=== PATIENT | female | born 1995 | race Caucasian/White ===

== ENCOUNTER 2020-07-04 07:14 | Inpatient (IN) | payer OTHER, SELFPAY ==
[2020-07-04] MEDS ORDERED: Fentanyl 100 MCG/2 ML VIAL ONE ×5 (07:20→17:02)
[2020-07-04 07:33] LABS: Hemoglobin 14.2 g/dL (12.0-16.0); Mean Corpuscular HGB CONC 33.7 g/dL (32.0-36.0); Mean Corpuscular Hemoglobin 30.7 pg (27.0-31.0); Mean Corpuscular Volume 91.2 fL (78.0-98.0); Mean Platelet Volume 6.6 fL (7.4-10.4); Platelet Count 399 thou/uL (130-400); RBC Distribution Width 11.3 % (11.5-14.5); Red Blood Cell (RBC) Count 4.62 mill/uL (4.20-5.40); White Blood Cell (WBC) Count 24.5 thou/uL (4.8-10.8)
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
[2020-07-04 07:36] LABS: BHCG - Serum Negative (NEGATIVE); Pregs Control Background? CLEAR/WHITE (CLR/WHITE); Pregs Control Bar Appear? YES (CONTROL BAR)
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
[2020-07-04 07:49] LABS: Band 5 % (5-11); Lymphocytes 11 % (21-51); MDiff Complete? YES; Monocytes 7 % (0-10); Neutrophil 75 % (42-75); Platelet Morphology Comment Appears Adequate; Polychromasia SLIGHT = 2-3 cells (100X) (0-2/hpf); Reactive Lymphocytes 2 % (0-10)
[2020-07-04] MEDS ORDERED: Boostrix 0.5 ML (Tdap) VIAL ONE (07:50)
[2020-07-04 07:54] LABS: ALT (SGPT) 34 U/L (8-55); AST (SGOT) 57 U/L (5-34); Albumin 4.4 g/dL (3.5-5.0); Alcohol 127 mg/dL (Less than 10); Alkaline Phosphatase 58 U/L (40-110); Anion Gap 17 mmol/L (10-20); BUN (Urea Nitrogen) 10 mg/dL (7.0-18.7); Bilirubin, Total 0.3 mg/dL (0.2-1.2); Calc. Creatinine Clearance 0 mL/min (70-130); Calcium 9.4 mg/dL (7.8-10.44); Carbon Dioxide 21 mmol/L (22-29); Chloride 107 mmol/L (98-107); Estimated GFR-MDRD 76; Glucose 117 mg/dL (70-105); Protein, Total 7.4 g/dL (6.0-8.3); Sodium 141 mmol/L (136-145)
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
[2020-07-04 08:24] LABS: Bacteria/HPF None Seen HPF (None Seen); Bilirubin Negative (Negative); Blood, Urine 1+ (Negative); Clarity Clear (Clear); Glucose, Urine (Dipstick) Normal (Negative); Ketone, Urine Negative (Negative); Leukocyte Negative Leu/uL (Negative); Nitrite Negative (Negative); Protein, Urine (Dipstick) Negative (Neg-Trace); Specific Gravity, Urine 1.006 (1.002-1.036); Squamous Epithelial None Seen HPF (0-3); Urobilinogen Normal mg/dL (Less than 2); WBC/HPF 0-3 HPF (0-3)
[2020-07-04] MEDS ORDERED: Ondansetron PF 4 MG/2 ML Vial ONE ×2 (08:27→08:57)
[2020-07-04] MEDS ORDERED: Dexamethasone 10 MG/ML VIAL ONE (08:27)
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
[2020-07-04 08:49] LABS: Amphetamine Detected (NotDetected); Barbiturates Screen Not Detected (NotDetected); Benzodiazepine Screen Detected (NotDetected); Cocaine Metabolite Screen Not Detected (NotDetected); Medtox Control Line Valid? VALID (VALID); Medtox Reader # READER 4; Methadone Not Detected (NotDetected); Methamphetamine Not Detected (NotDetected); Opiate Screen Not Detected (NotDetected); Oxycodone Screen Not Detected (NotDetected); Phencyclidine (PCP) Not Detected (NotDetected); THC/Cannabinoid Screen Not Detected (NotDetected); Tricyclic Screen Not Detected (NotDetected)
[2020-07-04] MEDS ORDERED: PHENYLEPHRINE-NS 100 MCG/ML 10 ML SYRINGE ONE (08:57)
[2020-07-04] MEDS ORDERED: ePHEDrine 50 MG/ML VIAL ONE (08:57)
[2020-07-04] MEDS ORDERED: Lidocaine 1% PF 5 ML VIAL ONE (08:57)
[2020-07-04] MEDS ORDERED: Glycopyrrolate 0.2 MG/ML 5 ML SYRINGE ONE (08:57)
[2020-07-04] MEDS ORDERED: Rocuronium Bromide 10 MG/ML (10ML VIAL) ONE (08:57)
[2020-07-04] MEDS ORDERED: Succinylcholine 200 MG/10 ml SYRINGE FS ONE (08:57)
[2020-07-04] MEDS ORDERED: PROPOFOL 200 MG/20 ML VIAL ONE (08:57)
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
[2020-07-04] MEDS ORDERED: Thrombin 5000 UNITS/5 ML VIAL ONE (10:51)
[2020-07-04 11:01] LABS: SARS-CoV-2 NAA Rapid Test Not Detected (NotDetected)
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
[2020-07-04] MEDS ORDERED: methylPREDNISolone Sod Succ 40 MG VIAL IVP SCH ×3 (11:45→12:45)
[2020-07-04] MEDS ORDERED: Pantoprazole 40 MG VIAL ONE (11:48)
[2020-07-04] MEDS ORDERED: Dextrose 50% Abboject 50 ML SYRINGE SLOW IVP PRN (12:04)
[2020-07-04] MEDS ORDERED: Morphine 4 MG/ML VIAL SLOW IVP PRN (12:04)
[2020-07-04] MEDS ORDERED: Dextrose 5% in Water 1,000 ML IV PRN (12:04)
[2020-07-04] MEDS ORDERED: traMADol HCl 50 MG TAB PO PRN (12:06)
[2020-07-04] MEDS ORDERED: Ondansetron PF 4 MG/2 ML Vial IVP PRN (12:06)
[2020-07-04] MEDS ORDERED: Sodium Chloride 0.9% 1,000 ML IV SCH (12:15)
[2020-07-04] MEDS ORDERED: Phenylephrine 10 MG/ML VIAL ONE ×2 (12:26→14:37)
[2020-07-04] MEDS ORDERED: SODIUM CHLORIDE 0.9% IVP SCH (12:30)
[2020-07-04] MEDS ORDERED: METHYLPREDNISOLONE SODIUM SUCC IVP SCH (12:30)
[2020-07-04] MEDS ORDERED: SODIUM CHLORIDE 0.9% IVPB SCH ×2 (12:45→13:00)
[2020-07-04] MEDS ORDERED: METHYLPREDNISOLONE SOD SUCC IVPB SCH ×2 (12:45→13:00)
[2020-07-04 12:55] LABS: Phosphorus 4.1 mg/dL (2.3-4.7)
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
[2020-07-04] MEDS ORDERED: Iopamidol-370 76% 500 ML 1 ML ONE (14:24)
[2020-07-04] MEDS ORDERED: HYDROmorphone 2 MG/ML VIAL ONE (15:44)
[2020-07-04] MEDS: CEFAZOLIN 2 GM in Premix Bag 1 BAG IVPB SCH ×2 (16:02→21:33)
[2020-07-04] MEDS: Acetaminophen 500 MG TAB PO SCH ×3 (16:28→23:58)
[2020-07-04] MEDS: traMADol HCl 50 MG TAB PO SCH ×3 (16:29→23:59)
[2020-07-04] MEDS: Gabapentin 300 MG CAP PO SCH ×2 (16:29→19:39)
[2020-07-04] MEDS ORDERED: Morphine Sulfate 2 MG/ML SYRINGE SLOW IVP PRN (16:31)
[2020-07-04] MEDS ORDERED: Promethazine HCl 25 MG/ML VIAL SLOW IVP PRN (16:31)
[2020-07-04] MEDS ORDERED: Meperidine HCl/PF 25 MG/ML VIAL SLOW IVP PRN (16:31)
[2020-07-04] MEDS ORDERED: HYDROmorphone 2 MG/ML VIAL SLOW IVP PRN (16:31)
[2020-07-04] MEDS ORDERED: Promethazine HCl 25 MG/ML VIAL IM PRN (16:31)
[2020-07-04] MEDS ORDERED: PACU-Morphine 4MG/ML VIAL SLOW IVP PRN (16:31)
[2020-07-04] MEDS ORDERED: Ketorolac Tromethamine 30 MG/ML VIAL IVP PRN (16:31)
[2020-07-04] MEDS ORDERED: Ondansetron HCl/PF 4 MG/2 ML Vial IVP PRN (16:31)
[2020-07-04] MEDS: SODIUM CHLORIDE 0.9% IVPB SCH (17:58)
[2020-07-04] MEDS: METHYLPREDNISOLONE SOD SUCC IVPB SCH (17:58)
[2020-07-04 18:14] VITALS: BMI 23.1
[2020-07-04] MEDS: Ondansetron PF 4 MG/2 ML Vial IVP PRN ×2 (18:47→21:36)
[2020-07-04 18:52] LABS: Hemoglobin 10.3 g/dL (12.0-16.0); Mean Corpuscular HGB CONC 32.9 g/dL (32.0-36.0); Mean Corpuscular Hemoglobin 30.6 pg (27.0-31.0); Mean Corpuscular Volume 92.9 fL (78.0-98.0); Mean Platelet Volume 6.8 fL (7.4-10.4); Platelet Count 276 thou/uL (130-400); RBC Distribution Width 12.6 % (11.5-14.5); Red Blood Cell (RBC) Count 3.38 mill/uL (4.20-5.40); White Blood Cell (WBC) Count 12.1 thou/uL (4.8-10.8)
[2020-07-04 18:54] LABS: Anion Gap 18 mmol/L (10-20); BUN (Urea Nitrogen) 11 mg/dL (7.0-18.7); CK (CPK) 2343 U/L (29-168); Calc. Creatinine Clearance 101 mL/min (70-130); Calcium 7.7 mg/dL (7.8-10.44); Carbon Dioxide 15 mmol/L (22-29); Chloride 110 mmol/L (98-107); Estimated GFR-MDRD 85; Glucose 189 mg/dL (70-105); Lactic Acid 7.1 mmol/L (0.5-2.2); Potassium 4.4 mmol/L (3.5-5.1); Sodium 139 mmol/L (136-145)
[2020-07-04] MEDS: Lactated Ringer's 1,000 ML IV SCH (19:35)
[2020-07-04] MEDS: Morphine 2 MG/ML VIAL SLOW IVP PRN ×3 (19:38→23:58)
[2020-07-04] MEDS ORDERED: Lactated Ringer's 500 ML IV SCH (20:15)
[2020-07-04] MEDS ORDERED: Famotidine 20 MG TAB PO SCH (21:00)
[2020-07-04] MEDS ORDERED: Pantoprazole 40 MG VIAL IVP SCH (21:00)
[2020-07-04] MEDS: Senokot S 8.6-50 MG TAB PO SCH (22:12)
[2020-07-05] MEDS: Lactated Ringer's 1,000 ML IV SCH (00:04)
[2020-07-05] MEDS: Morphine 2 MG/ML VIAL SLOW IVP PRN (03:14)
[2020-07-05] MEDS: Ondansetron PF 4 MG/2 ML Vial IVP PRN (03:14)
[2020-07-05 04:04] LABS: #Lymphocytes 0.8 thou/uL (1.20-3.40); #Monocytes 0.8 thou/uL (0.11-0.59); #Neutrophils 9.7 thou/uL (1.40-6.50); %Basophils 0.1 % (0.0-1.0); %Eosinophils 0.1 % (0.0-10.0); %Lymphocytes 7.4 % (21.0-51.0); %Monocytes 6.6 % (0.0-10.0); %Neutrophils 85.8 % (42.0-75.0); Hemoglobin 8.4 g/dL (12.0-16.0); Mean Corpuscular Volume 91.1 fL (78.0-98.0); Platelet Count 219 thou/uL (130-400); RBC Distribution Width 12.2 % (11.5-14.5); Red Blood Cell (RBC) Count 2.71 mill/uL (4.20-5.40); White Blood Cell (WBC) Count 11.3 thou/uL (4.8-10.8)
[2020-07-05 04:25] LABS: Lactic Acid 5.6 mmol/L (0.5-2.2)
[2020-07-05 04:29] LABS: Anion Gap 15 mmol/L (10-20); BUN (Urea Nitrogen) 11 mg/dL (7.0-18.7); CK (CPK) 3103 U/L (29-168); Calc. Creatinine Clearance 92 mL/min (70-130); Calcium 7.9 mg/dL (7.8-10.44); Carbon Dioxide 19 mmol/L (22-29); Chloride 106 mmol/L (98-107); Estimated GFR-MDRD 76; Glucose 175 mg/dL (70-105); Magnesium 1.5 mg/dL (1.6-2.6); Phosphorus 3.8 mg/dL (2.3-4.7); Potassium 4.5 mmol/L (3.5-5.1); Sodium 135 mmol/L (136-145)
[2020-07-05] MEDS: CEFAZOLIN 2 GM in Premix Bag 1 BAG IVPB SCH ×3 (05:12→23:40)
[2020-07-05] MEDS: Acetaminophen 500 MG TAB PO SCH ×4 (05:15→23:40)
[2020-07-05] MEDS: traMADol HCl 50 MG TAB PO SCH (05:16)
[2020-07-05] MEDS ORDERED: Sodium Chloride 0.9% 1,000 ML IV SCH (05:30)
[2020-07-05] MEDS ORDERED: Calcium Chloride 1 GM/10 ML Abboject SYRINGE IVP SCH (05:45)
[2020-07-05] MEDS ORDERED: Magnesium Sulfate 4 GM in Sodium Chloride 0.9% 250 ML 250 ML IVPB SCH (06:00)
[2020-07-05] MEDS ORDERED: Sodium Phosphate 30 MMOL in Sodium Chloride 0.9% 250 ML 250 ML IVPB SCH (06:00)
[2020-07-05] MEDS ORDERED: traMADol HCl 50 MG TAB PO SCH ×2 (07:36→10:00)
--- NOTE | 2020-07-05 08:09 | RAD ---
Exam: Chest one view HISTORY:Follow-up bilateral pneumonia Comparison: 07/04/2020 FINDINGS: Cardiac silhouette: Normal Aorta: Unremarkable Pulmonary vessels: Normal Costophrenic angles: 6 interval right pleural effusion LUNGS: Interval bibasilar opacities which may represent atelectasis, pneumonia or aspiration. Pulmona ry contusions cannot be entirely excluded, in the setting of trauma. Pneumothorax: None Osseous abnormalities: Interval placement of extensive fusion hardware in the mid to distal thoracic spine. Limited evaluation of known compression fracture at T8. IMPRESSION: 1. Bilateral pleural effusions. 2. Bibasilar consolidation as above. 3. Interval thoracic spine hardware placement.
[2020-07-05] MEDS: Polyethylene Glycol 3350 17 GM Packet PO SCH (08:21)
[2020-07-05] MEDS: Senokot S 8.6-50 MG TAB PO SCH ×2 (08:21→21:13)
[2020-07-05] MEDS: Gabapentin 300 MG CAP PO SCH ×3 (08:21→21:12)
[2020-07-05] MEDS ORDERED: FLU VACC QS2020-21(6MOS UP)/PF 60 MCG/0.5 ML SYRINGE IM ONE (09:00)
[2020-07-05] MEDS: Cyclobenzaprine 10 MG TAB PO PRN (10:04)
[2020-07-05] MEDS: Sodium Bicarbonate 150 MEQ in Dextrose 5% in Water 850 ML IV SCH ×2 (10:05→18:05)
[2020-07-05 10:11] LABS: Lactic Acid 5.7 mmol/L (0.5-2.2)
--- NOTE | 2020-07-05 10:42 | PRG ---
DATE OF SERVICE: 07/05/2020 Ms. Reed is postoperative day #1 following extensive thoracic fracture dislocation repair from T6 through T11 with decompression of the spinal cord and dural tube. Unfortunately, my concern of this being a cord transection preoperatively was borne out intraoperatively. This morning, she does have plantar responses, but indicating spinal shock resolution. Her hemodynamics are stable with systolic blood pressure over 90. We will do one more day of the steroid protocol. I would recommend her hemoglobin stay preferably above 9 for yet another day. Again, she is a T9 paraplegic and she has an NICOLASA A T9 sensory level with sensation appearing just above the umbilicus. She will need aggressive physical therapy and rehab or multimodality. Job ID: [id number]
[2020-07-05] MEDS ORDERED: diphenhydrAMINE 50 MG/ML VIAL IM PRN (11:55)
[2020-07-05] MEDS ORDERED: Naloxone HCl 0.4 mg/ml Vial IV PRN (11:55)
[2020-07-05] MEDS ORDERED: diphenhydrAMINE 25 MG CAP PO PRN (11:55)
[2020-07-05] MEDS ORDERED: diphenhydrAMINE 50 MG/ML VIAL IVP PRN (11:55)
[2020-07-05] MEDS ORDERED: Promethazine HCl 25 MG/ML VIAL IM PRN (11:55)
[2020-07-05] MEDS ORDERED: Communication Order-Pharmacy FS PRN (12:00)
[2020-07-05] MEDS: HYDROmorphone 10 mg/100 ml CADD IVPB PRN (13:24)
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
[2020-07-05] MEDS: SODIUM CHLORIDE 0.9% IVPB SCH (15:58)
[2020-07-05] MEDS: METHYLPREDNISOLONE SOD SUCC IVPB SCH (15:58)
[2020-07-06] MEDS: Sodium Bicarbonate 150 MEQ in Dextrose 5% in Water 850 ML IV SCH ×4 (02:13→17:50)
[2020-07-06] MEDS: Acetaminophen 500 MG TAB PO SCH ×4 (02:13→17:50)
[2020-07-06] MEDS: CEFAZOLIN 2 GM in Premix Bag 1 BAG IVPB SCH (05:26)
[2020-07-06 07:59] LABS: Hemoglobin 7.9 g/dL (12.0-16.0); Mean Corpuscular HGB CONC 34.7 g/dL (32.0-36.0); Mean Corpuscular Hemoglobin 31.6 pg (27.0-31.0); Mean Corpuscular Volume 91.1 fL (78.0-98.0); Mean Platelet Volume 7.2 fL (7.4-10.4); Platelet Count 170 thou/uL (130-400); RBC Distribution Width 12.5 % (11.5-14.5); Red Blood Cell (RBC) Count 2.51 mill/uL (4.20-5.40); White Blood Cell (WBC) Count 13.6 thou/uL (4.8-10.8)
[2020-07-06] MEDS: Senokot S 8.6-50 MG TAB PO SCH ×2 (08:12→20:42)
[2020-07-06] MEDS: Gabapentin 300 MG CAP PO SCH ×3 (08:13→20:42)
[2020-07-06] MEDS: Polyethylene Glycol 3350 17 GM Packet PO SCH (08:13)
[2020-07-06 08:20] LABS: Anion Gap 12 mmol/L (10-20); BUN (Urea Nitrogen) 10 mg/dL (7.0-18.7); Calc. Creatinine Clearance 105 mL/min (70-130); Calcium 8.2 mg/dL (7.8-10.44); Carbon Dioxide 31 mmol/L (22-29); Chloride 103 mmol/L (98-107); Estimated GFR-MDRD 89; Glucose 203 mg/dL (70-105); Magnesium 2.1 mg/dL (1.6-2.6); Potassium 3.6 mmol/L (3.5-5.1); Sodium 142 mmol/L (136-145)
[2020-07-06] MEDS ORDERED: Potassium Phosphate 30 MMOL in Sodium Chloride 0.9% 250 ML 250 ML IVPB SCH (09:00)
[2020-07-06 10:06] LABS: Band 15 % (5-11); Lymphocytes 4 % (21-51); MDiff Complete? YES; Monocytes 7 % (0-10); Neutrophil 74 % (42-75); Platelet Morphology Comment Appears Adequate; Polychromasia SLIGHT = 2-3 cells (100X) (0-2/hpf)
[2020-07-06 10:30] LABS: Lactic Acid 2.9 mmol/L (0.5-2.2)
[2020-07-06] MEDS: Ferrous Sulfate 325 MG TAB PO SCH ×2 (10:42→20:42)
[2020-07-06] MEDS: Ascorbic Acid 500 mg Chewable Tablet PO SCH ×2 (10:42→20:42)
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
[2020-07-06] MEDS: HYDROmorphone 10 mg/100 ml CADD IVPB PRN (17:50)
[2020-07-07] MEDS: Acetaminophen 500 MG TAB PO SCH ×3 (04:28→13:28)
[2020-07-07] MEDS: Sodium Bicarbonate 150 MEQ in Dextrose 5% in Water 850 ML IV SCH ×2 (05:34→09:58)
[2020-07-07 06:24] LABS: #Basophils 0.1 thou/uL (0.0-0.2); #Lymphocytes 0.5 thou/uL (1.20-3.40); #Monocytes 0.9 thou/uL (0.11-0.59); #Neutrophils 14.2 thou/uL (1.40-6.50); %Basophils 0.3 % (0.0-1.0); %Eosinophils 0.3 % (0.0-10.0); %Lymphocytes 3.4 % (21.0-51.0); %Monocytes 5.6 % (0.0-10.0); %Neutrophils 90.4 % (42.0-75.0); Hemoglobin 9.4 g/dL (12.0-16.0); Mean Corpuscular HGB CONC 31.6 g/dL (32.0-36.0); Mean Corpuscular Hemoglobin 28.8 pg (27.0-31.0); Mean Platelet Volume 6.9 fL (7.4-10.4); Platelet Count 158 thou/uL (130-400); Red Blood Cell (RBC) Count 3.25 mill/uL (4.20-5.40); White Blood Cell (WBC) Count 15.7 thou/uL (4.8-10.8)
[2020-07-07 06:33] LABS: Anion Gap 13 mmol/L (10-20); BUN (Urea Nitrogen) 13 mg/dL (7.0-18.7); Calc. Creatinine Clearance 119 mL/min (70-130); Calcium 8.3 mg/dL (7.8-10.44); Carbon Dioxide 28 mmol/L (22-29); Chloride 103 mmol/L (98-107); Estimated GFR-MDRD Greater than 90; Glucose 196 mg/dL (70-105); Potassium 3.3 mmol/L (3.5-5.1); Sodium 141 mmol/L (136-145)
[2020-07-07 06:49] LABS: CK (CPK) 5137 U/L (29-168)
[2020-07-07] MEDS ORDERED: Potassium Phosphate 30 MMOL in Sodium Chloride 0.9% 500 ML IVPB SCH (10:00)
[2020-07-07] MEDS ORDERED: Potassium Chloride 20 MEQ TAB PO SCH (10:00)
[2020-07-07] MEDS: Senokot S 8.6-50 MG TAB PO SCH ×2 (10:01→20:13)
[2020-07-07] MEDS: Polyethylene Glycol 3350 17 GM Packet PO SCH (10:01)
[2020-07-07] MEDS: Gabapentin 300 MG CAP PO SCH ×3 (10:01→20:14)
[2020-07-07] MEDS: Ascorbic Acid 500 mg Chewable Tablet PO SCH ×2 (10:01→20:13)
[2020-07-07] MEDS: Ferrous Sulfate 325 MG TAB PO SCH ×2 (10:01→20:13)
[2020-07-07] MEDS ORDERED: Enoxaparin Sodium 40 MG/0.4 ML SYRINGE SC SCH ×2 (12:30→21:00)
[2020-07-07] MEDS ORDERED: HYDROmorphone 10 mg/100 ml CADD IVPB PRN (12:32)
--- NOTE | 2020-07-07 12:32 | PRG ---
DATE OF SERVICE: 07/07/2020 Ms. Reed is postoperative day #3 following thoracic stabilization, fracture deformity correction, decompression for acute spinal cord injury. She remains T9 level paraplegic. We are going to start getting her out of bed to a chair and working with therapy on transfers. She has been started on Lovenox prophylactically. We will order an ultrasound of the lower extremities given her high risk and we will start move towards inpatient rehab destination. Job ID: [id number]
[2020-07-07] MEDS ORDERED: HYDROcodone/Acetaminophen 5/325 mg Tablet PO PRN (12:33)
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
[2020-07-07] MEDS: Acetaminophen 325 MG TAB PO SCH ×2 (16:46→22:06)
[2020-07-07] MEDS: Ibuprofen 200 MG TAB PO SCH ×2 (16:48→22:05)
[2020-07-08] MEDS: Sodium Bicarbonate 150 MEQ in Dextrose 5% in Water 850 ML IV SCH ×2 (01:45→07:50)
[2020-07-08] MEDS: Ibuprofen 200 MG TAB PO SCH ×4 (04:55→20:48)
[2020-07-08] MEDS: Acetaminophen 325 MG TAB PO SCH ×4 (04:55→20:49)
[2020-07-08 06:02] LABS: Anion Gap 12 mmol/L (10-20); BUN (Urea Nitrogen) 10 mg/dL (7.0-18.7); CK (CPK) 3311 U/L (29-168); Calc. Creatinine Clearance 134 mL/min (70-130); Calcium 7.7 mg/dL (7.8-10.44); Carbon Dioxide 26 mmol/L (22-29); Chloride 105 mmol/L (98-107); Estimated GFR-MDRD Greater than 90; Glucose 123 mg/dL (70-105); Magnesium 1.8 mg/dL (1.6-2.6); Potassium 3.4 mmol/L (3.5-5.1); Sodium 140 mmol/L (136-145)
[2020-07-08 06:04] LABS: Phosphorus 1.9 mg/dL (2.3-4.7)
[2020-07-08 06:30] LABS: Band 2 % (5-11); Eosinophils 1 % (0-10); Hemoglobin 9.3 g/dL (12.0-16.0); Lymphocytes 19 % (21-51); MDiff Complete? YES; Mean Corpuscular HGB CONC 34.4 g/dL (32.0-36.0); Mean Corpuscular Volume 93.1 fL (78.0-98.0); Mean Platelet Volume 7.2 fL (7.4-10.4); Monocytes 5 % (0-10); Neutrophil 72 % (42-75); Platelet Count 155 thou/uL (130-400); Platelet Morphology Comment Appears Adequate; RBC Distribution Width 12.8 % (11.5-14.5); Reactive Lymphocytes 1 % (0-10); Red Blood Cell (RBC) Count 2.91 mill/uL (4.20-5.40); White Blood Cell (WBC) Count 9.8 thou/uL (4.8-10.8)
[2020-07-08] MEDS ORDERED: Potassium Chloride 20 MEQ TAB PO SCH (09:45)
[2020-07-08] MEDS: Polyethylene Glycol 3350 17 GM Packet PO SCH (09:56)
[2020-07-08] MEDS: Enoxaparin Sodium 40 MG/0.4 ML SYRINGE SC SCH (09:56)
[2020-07-08] MEDS: Senokot S 8.6-50 MG TAB PO SCH ×2 (09:57→23:11)
[2020-07-08] MEDS: Ferrous Sulfate 325 MG TAB PO SCH ×2 (09:57→20:48)
[2020-07-08] MEDS: Ascorbic Acid 500 mg Chewable Tablet PO SCH ×2 (09:57→20:48)
[2020-07-08] MEDS: Gabapentin 300 MG CAP PO SCH ×3 (09:58→20:47)
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
--- NOTE | 2020-07-08 14:21 | PRG ---
DATE OF SERVICE: Ms. Reed is a postoperative day 4 following an extensive thoracic stabilization, decompression for complete spinal cord injury. She is depressed this morning . I have again let her know that I think she is going to do quite well. We are making arrangements for her to be transferred to [facility] for rehab. For extensive spinal cord injury rehab, she will need suprapubic catheterization and the plan appears to be that is going to happen in the near future with our trauma team. She is on prophylactic Lovenox. She remains a T9 cord level. Job ID: [id number]
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
[2020-07-09] MEDS: Acetaminophen 325 MG TAB PO SCH ×4 (04:58→22:53)
[2020-07-09] MEDS: Ibuprofen 200 MG TAB PO SCH ×4 (04:59→22:53)
[2020-07-09] MEDS: Ondansetron PF 4 MG/2 ML Vial IVP PRN ×2 (09:15→18:53)
[2020-07-09] MEDS: Gabapentin 300 MG CAP PO SCH ×3 (09:23→20:14)
[2020-07-09] MEDS: Senokot S 8.6-50 MG TAB PO SCH ×2 (09:24→20:14)
[2020-07-09] MEDS: Ferrous Sulfate 325 MG TAB PO SCH ×2 (09:25→20:15)
[2020-07-09] MEDS: Enoxaparin Sodium 40 MG/0.4 ML SYRINGE SC SCH (09:25)
[2020-07-09] MEDS: Ascorbic Acid 500 mg Chewable Tablet PO SCH ×2 (09:25→20:14)
[2020-07-09] MEDS: Polyethylene Glycol 3350 17 GM Packet PO SCH (09:26)
[2020-07-09] MEDS: traMADol HCl 50 MG TAB PO SCH ×2 (18:51→22:53)
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
[2020-07-09] MEDS: Cyclobenzaprine 10 MG TAB PO PRN (20:15)
[2020-07-09] MEDS: Melatonin 3 MG TAB PO PRN (22:53)
[2020-07-10] MEDS: Cyclobenzaprine 10 MG TAB PO PRN ×2 (02:34→21:59)
[2020-07-10] MEDS: traMADol HCl 50 MG TAB PO PRN (02:35)
[2020-07-10] MEDS: Acetaminophen 325 MG TAB PO SCH ×4 (05:06→21:59)
[2020-07-10] MEDS: Ibuprofen 200 MG TAB PO SCH ×4 (05:07→21:59)
[2020-07-10] MEDS: traMADol HCl 50 MG TAB PO SCH ×4 (05:07→23:33)
[2020-07-10 05:39] LABS: #Eosinphils 0.3 thou/uL (0.0-0.7); #Lymphocytes 1.7 thou/uL (1.20-3.40); #Monocytes 0.7 thou/uL (0.11-0.59); #Neutrophils 5.4 thou/uL (1.40-6.50); %Basophils 0.2 % (0.0-1.0); %Eosinophils 3.6 % (0.0-10.0); %Lymphocytes 20.8 % (21.0-51.0); %Monocytes 8.8 % (0.0-10.0); %Neutrophils 66.7 % (42.0-75.0); Hemoglobin 10.4 g/dL (12.0-16.0); Mean Corpuscular HGB CONC 33.4 g/dL (32.0-36.0); Mean Corpuscular Hemoglobin 30.6 pg (27.0-31.0); Mean Corpuscular Volume 91.7 fL (78.0-98.0); Mean Platelet Volume 6.9 fL (7.4-10.4); Platelet Count 236 thou/uL (130-400); RBC Distribution Width 12.6 % (11.5-14.5); Red Blood Cell (RBC) Count 3.39 mill/uL (4.20-5.40); White Blood Cell (WBC) Count 8.2 thou/uL (4.8-10.8)
[2020-07-10 06:02] LABS: Anion Gap 11 mmol/L (10-20); BUN (Urea Nitrogen) 9 mg/dL (7.0-18.7); CK (CPK) 948 U/L (29-168); Calc. Creatinine Clearance 132 mL/min (70-130); Calcium 8.3 mg/dL (7.8-10.44); Carbon Dioxide 26 mmol/L (22-29); Chloride 103 mmol/L (98-107); Estimated GFR-MDRD Greater than 90; Glucose 93 mg/dL (70-105); Phosphorus 4.5 mg/dL (2.3-4.7); Potassium 4.3 mmol/L (3.5-5.1); Sodium 136 mmol/L (136-145)
[2020-07-10] MEDS: Senokot S 8.6-50 MG TAB PO SCH ×2 (09:38→21:58)
[2020-07-10] MEDS: Ascorbic Acid 500 mg Chewable Tablet PO SCH ×2 (09:38→21:59)
[2020-07-10] MEDS: Ferrous Sulfate 325 MG TAB PO SCH ×2 (09:38→21:59)
[2020-07-10] MEDS: Gabapentin 300 MG CAP PO SCH ×3 (09:38→21:58)
[2020-07-10] MEDS: Polyethylene Glycol 3350 17 GM Packet PO SCH (09:39)
[2020-07-10] MEDS: Enoxaparin Sodium 40 MG/0.4 ML SYRINGE SC SCH (09:39)
[2020-07-10] MEDS: Ondansetron PF 4 MG/2 ML Vial IVP PRN (09:40)
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
[2020-07-10] MEDS: Melatonin 3 MG TAB PO PRN (21:59)
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
[2020-07-11] MEDS: Ibuprofen 200 MG TAB PO SCH ×4 (05:01→21:07)
[2020-07-11] MEDS: traMADol HCl 50 MG TAB PO SCH ×3 (05:02→18:15)
[2020-07-11] MEDS: Acetaminophen 325 MG TAB PO SCH ×4 (05:02→21:07)
[2020-07-11] MEDS: Senokot S 8.6-50 MG TAB PO SCH ×2 (09:53→21:08)
[2020-07-11] MEDS: Ferrous Sulfate 325 MG TAB PO SCH ×2 (09:55→21:08)
[2020-07-11] MEDS: Gabapentin 300 MG CAP PO SCH ×3 (09:55→21:09)
[2020-07-11] MEDS: traMADol HCl 50 MG TAB PO PRN ×2 (09:56→21:09)
[2020-07-11] MEDS: Polyethylene Glycol 3350 17 GM Packet PO SCH (09:56)
[2020-07-11] MEDS: Enoxaparin Sodium 40 MG/0.4 ML SYRINGE SC SCH (09:56)
[2020-07-11] MEDS: Ascorbic Acid 500 mg Chewable Tablet PO SCH ×2 (09:56→21:09)
[2020-07-11] MEDS: Ondansetron PF 4 MG/2 ML Vial IVP PRN (11:19)
[2020-07-11] MEDS ORDERED: Scopolamine 1.5 mg/72 hour Patch TD SCH (11:45)
[2020-07-11] MEDS: Melatonin 3 MG TAB PO PRN (21:08)
[2020-07-12 01:09] LABS: SARS-CoV-2 MS2 Positive; SARS-CoV-2 N Gene Negative; SARS-CoV-2 S Gene Negative; SARS-CoV-2 by NAA Not Detected (NotDetected); SARS-CoV-2 orf1ab Negative
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
[2020-07-12] MEDS: traMADol HCl 50 MG TAB PO SCH ×5 (03:57→22:35)
[2020-07-12] MEDS: Acetaminophen 325 MG TAB PO SCH ×4 (05:07→21:12)
[2020-07-12] MEDS: Ibuprofen 200 MG TAB PO SCH ×4 (05:08→23:02)
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
[2020-07-12] MEDS: Ascorbic Acid 500 mg Chewable Tablet PO SCH ×2 (09:15→21:13)
[2020-07-12] MEDS: Senokot S 8.6-50 MG TAB PO SCH ×2 (09:16→21:13)
[2020-07-12] MEDS: Enoxaparin Sodium 40 MG/0.4 ML SYRINGE SC SCH (09:16)
[2020-07-12] MEDS: Polyethylene Glycol 3350 17 GM Packet PO SCH (09:16)
[2020-07-12] MEDS: Gabapentin 300 MG CAP PO SCH ×3 (09:16→21:13)
[2020-07-12] MEDS: Ferrous Sulfate 325 MG TAB PO SCH ×2 (09:16→21:13)
[2020-07-12] MEDS: traMADol HCl 50 MG TAB PO PRN ×2 (14:35→22:35)
[2020-07-12] MEDS: Melatonin 3 MG TAB PO PRN (21:13)
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
[2020-07-13] MEDS: Acetaminophen 325 MG TAB PO SCH ×3 (05:00→14:57)
[2020-07-13] MEDS: traMADol HCl 50 MG TAB PO SCH ×2 (05:00→11:26)
[2020-07-13] MEDS: Ibuprofen 200 MG TAB PO SCH ×3 (05:00→14:57)
[2020-07-13 05:58] LABS: Hemoglobin 11.7 g/dL (12.0-16.0); Mean Corpuscular Hemoglobin 30.5 pg (27.0-31.0); Mean Corpuscular Volume 92.4 fL (78.0-98.0); Mean Platelet Volume 6.4 fL (7.4-10.4); Platelet Count 421 thou/uL (130-400); RBC Distribution Width 12.9 % (11.5-14.5); Red Blood Cell (RBC) Count 3.83 mill/uL (4.20-5.40); White Blood Cell (WBC) Count 15.9 thou/uL (4.8-10.8)
[2020-07-13 06:17] LABS: Anion Gap 14 mmol/L (10-20); BUN (Urea Nitrogen) 14 mg/dL (7.0-18.7); Calc. Creatinine Clearance 126 mL/min (70-130); Calcium 9.5 mg/dL (7.8-10.44); Carbon Dioxide 27 mmol/L (22-29); Chloride 99 mmol/L (98-107); Estimated GFR-MDRD Greater than 90; Glucose 109 mg/dL (70-105); Magnesium 1.9 mg/dL (1.6-2.6); Phosphorus 4.3 mg/dL (2.3-4.7); Potassium 5.7 mmol/L (3.5-5.1); Sodium 134 mmol/L (136-145)
[2020-07-13] MEDS: Ferrous Sulfate 325 MG TAB PO SCH (08:50)
[2020-07-13] MEDS: Senokot S 8.6-50 MG TAB PO SCH (08:51)
[2020-07-13] MEDS: Gabapentin 300 MG CAP PO SCH ×2 (08:51→14:56)
[2020-07-13] MEDS: Ascorbic Acid 500 mg Chewable Tablet PO SCH (08:51)
[2020-07-13] MEDS: Polyethylene Glycol 3350 17 GM Packet PO SCH (08:52)
[2020-07-13] MEDS: Enoxaparin Sodium 40 MG/0.4 ML SYRINGE SC SCH (08:53)
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
[2020-07-13 10:21] LABS: Bacteria/HPF 2+ HPF (None Seen); Bilirubin Negative (Negative); Blood, Urine 2+ (Negative); Clarity Extra Turbid (Clear); Glucose, Urine (Dipstick) Normal (Negative); Ketone, Urine Negative (Negative); Leukocyte 500 Leu/uL (Negative); Nitrite Negative (Negative); Protein, Urine (Dipstick) 30 mg/dL (Neg-Trace); RBC/HPF Greater than 50 HPF (0-3); Specific Gravity, Urine 1.005 (1.002-1.036); Squamous Epithelial None Seen HPF (0-3); Transitional Epithelial 0-3 HPF (None Seen); Urobilinogen Normal mg/dL (Less than 2); WBC/HPF Greater than 50 HPF (0-3)
[2020-07-13 10:22] LABS: Urine Culture Reflex Yes Yes
[2020-07-13 11:16] VITALS: BP 97/43; TEMP 98.6
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
[2020-07-13] MEDS: traMADol HCl 50 MG TAB PO PRN (14:58)
[2020-07-13] MEDS ORDERED: Sulfameth/Trimethoprim DS 800-160mg TAB PO SCH (21:00)
== END 2020-07-13 16:03 | DRG 957 ==
LOC: EDBD 07:14 → ERS 07:14 → SDC 10:00 → CCU 11:53 → SURG B 07-05 15:43
PROVIDERS: ADMIT Surgery; ATTEND Surgery
PROC: 00NX0ZZ Release Thoracic Spinal Cord, Open Approach (ICD-10-PCS; principal; 2020-07-04)
PROC: 0RB90ZZ Excision of Thoracic Vertebral Disc, Open Approach (ICD-10-PCS; 2020-07-04)
PROC: 0RG7071 Fusion of 2 to 7 Thoracic Vertebral Joints with Autologous Tissue Substitute, Posterior Approach, Posterior Column, Open Approach (ICD-10-PCS; 2020-07-04)
PROC: 30233N1 Transfusion of Nonautologous Red Blood Cells into Peripheral Vein, Percutaneous Approach (ICD-10-PCS; 2020-07-04)
DX: S24.103A Unspecified injury at T7-T10 level of thoracic spinal cord, initial encounter (principal); S06.5X9A Traumatic subdural hemorrhage with loss of consciousness of unspecified duration, initial encounter; R40.2342 Coma scale, best motor response, flexion withdrawal, at arrival to emergency department; S27.0XXA Traumatic pneumothorax, initial encounter; S22.43XA Multiple fractures of ribs, bilateral, initial encounter for closed fracture; G82.20 Paraplegia, unspecified; E87.2 Acidosis; F90.9 Attention-deficit hyperactivity disorder, unspecified type; S22.079A Unspecified fracture of T9-T10 vertebra, initial encounter for closed fracture; S22.059A Unspecified fracture of T5-T6 vertebra, initial encounter for closed fracture; S22.069A Unspecified fracture of T7-T8 vertebra, initial encounter for closed fracture; S22.029A Unspecified fracture of second thoracic vertebra, initial encounter for closed fracture; S22.089A Unspecified fracture of T11-T12 vertebra, initial encounter for closed fracture; F17.200 Nicotine dependence, unspecified, uncomplicated; T79.6XXA Traumatic ischemia of muscle, initial encounter; R40.2142 Coma scale, eyes open, spontaneous, at arrival to emergency department; R40.2252 Coma scale, best verbal response, oriented, at arrival to emergency department; Z79.899 Other long term (current) drug therapy; V89.2XXA Person injured in unspecified motor-vehicle accident, traffic, initial encounter; E83.42 Hypomagnesemia; E83.39 Other disorders of phosphorus metabolism; R73.9 Hyperglycemia, unspecified; E87.6 Hypokalemia; D72.829 Elevated white blood cell count, unspecified; Z20.828 Contact with and (suspected) exposure to other viral communicable diseases
CPT/HCPCS: 36415; 36416; 36430; 51702; 70450; 71045; 71260; 72125; 72146; 72170; 74177; 76000; 80048; 80053; 80306; 80307; 81001; 81003; 81015; 82550; 83605; 83735; 84100; 84703; 85025; 85027; 86850; 86900; 86901; 87077; 87086; 87186; 87635; 90471; 90715; 93005; 93970; 94760; 96365; 96374; 96375; 99292; C1713; C1768; C9113; G0390; J0690; J1100; J1170; J1650; J2270; J2370; J2405; J2704; J2920; J2930; J3010; J3370; J3475; J3490; J7030; J7050; J7070; P9016; Q9967; U0002; U0003

== ENCOUNTER 2020-08-08 09:07 | Outpatient (CLI) | payer OTHER ==
--- NOTE | 2020-08-08 12:16 | RAD ---
THORACIC SPINE 3 VIEWS: HISTORY: Followup of thoracic spine injury. COMPARISON: MRI examination of 07/04/2020. FINDINGS: Postoperative changes are now present. Bilateral pedicle screws extend from T6 to T11. Bony alignme nt is now satisfactory. There are some compression changes involving the superior end plate of T9. IMPRESSION: Postop change of the spine. Mild loss of vertebral body height at the T9 vertebral body level. POS: JED
== END 2020-08-08 09:08 | disposition home or self-care (01) ==
LOC: TBSIIMAG 09:07
PROVIDERS: ATTEND Surgery
DX: S24.109A Unspecified injury at unspecified level of thoracic spinal cord, initial encounter (principal); S22.009A Unspecified fracture of unspecified thoracic vertebra, initial encounter for closed fracture; Z98.890 Other specified postprocedural states
CPT/HCPCS: 72070

== ENCOUNTER 2020-08-08 12:03 | Inpatient (IN) | payer OTHER ==
[2020-08-08] MEDS ORDERED: Acetaminophen 325 MG TAB PO PRN (15:08)
[2020-08-08] MEDS ORDERED: traMADol HCl 50 MG TAB PO PRN (15:09)
[2020-08-08] MEDS ORDERED: Ondansetron ODT 4 MG TAB PO PRN (15:12)
[2020-08-08] MEDS: HYDROcodone/Acetaminophen 5/325 mg Tablet PO PRN ×2 (15:23→22:07)
[2020-08-08 16:03] VITALS: BMI 21.7
[2020-08-08 16:09] LABS: #Basophils 0.1 thou/uL (0.0-0.2); #Eosinphils 0.4 thou/uL (0.0-0.7); #Lymphocytes 1.7 thou/uL (1.20-3.40); #Neutrophils 7.6 thou/uL (1.40-6.50); %Eosinophils 3.6 % (0.0-10.0); %Lymphocytes 15.8 % (21.0-51.0); %Neutrophils 70.6 % (42.0-75.0); Hemoglobin 12.5 g/dL (12.0-16.0); Mean Corpuscular HGB CONC 34.2 g/dL (32.0-36.0); Mean Corpuscular Hemoglobin 30.3 pg (27.0-31.0); Mean Corpuscular Volume 88.7 fL (78.0-98.0); Mean Platelet Volume 5.9 fL (7.4-10.4); Platelet Count 376 thou/uL (130-400); RBC Distribution Width 11.9 % (11.5-14.5); Red Blood Cell (RBC) Count 4.13 mill/uL (4.20-5.40); White Blood Cell (WBC) Count 10.7 thou/uL (4.8-10.8)
[2020-08-08 16:34] LABS: Anion Gap 13 mmol/L (10-20); BUN (Urea Nitrogen) 9 mg/dL (7.0-18.7); CRP (Inflammatory) 11.18 mg/dL (= or < 0.5); Calc. Creatinine Clearance 120 mL/min (70-130); Calcium 9.2 mg/dL (7.8-10.44); Carbon Dioxide 24 mmol/L (22-29); Chloride 100 mmol/L (98-107); Glucose 105 mg/dL (70-105); Sodium 133 mmol/L (136-145)
[2020-08-08] MEDS: Cefepime 1 GM in Sodium Chloride 0.9% 100 ML IVPB SCH (17:12)
[2020-08-08] MEDS: Vancomycin 1 GM in Premix Bag 1 BAG IVPB SCH (18:09)
[2020-08-08] MEDS: Acetaminophen/Codeine 30-300mg Tablet PO PRN (19:16)
[2020-08-08] MEDS: metroNIDAZOLE 500 MG in Premix Bag 1 BAG IVPB SCH (20:44)
[2020-08-08] MEDS: hydrOXYzine 25 MG TAB PO PRN (21:42)
[2020-08-08] MEDS ORDERED: Melatonin 3 MG TAB PO PRN (23:09)
[2020-08-09] MEDS: metroNIDAZOLE 500 MG in Premix Bag 1 BAG IVPB SCH ×3 (02:37→17:03)
[2020-08-09] MEDS: Acetaminophen/Codeine 30-300mg Tablet PO PRN ×2 (02:38→17:53)
[2020-08-09] MEDS: Cefepime 1 GM in Sodium Chloride 0.9% 100 ML IVPB SCH ×2 (04:29→16:10)
[2020-08-09] MEDS: Vancomycin 1 GM in Premix Bag 1 BAG IVPB SCH ×2 (05:48→18:50)
[2020-08-09 05:58] LABS: SARS-CoV-2 MS2 Positive; SARS-CoV-2 N Gene Negative; SARS-CoV-2 S Gene Negative; SARS-CoV-2 by NAA Not Detected (NotDetected); SARS-CoV-2 orf1ab Negative
[2020-08-09] MEDS: HYDROcodone/Acetaminophen 5/325 mg Tablet PO PRN (06:27)
[2020-08-09] MEDS ORDERED: Thrombin 5000 UNITS/5 ML VIAL ONE (10:02)
[2020-08-09] MEDS ORDERED: Lidocaine 2% Jelly 5 ML TUBE ONE (10:12)
[2020-08-09] MEDS ORDERED: Fentanyl 100 MCG/2 ML VIAL ONE ×4 (10:12→19:55)
--- NOTE | 2020-08-09 10:33 | PRG ---
DATE OF SERVICE: 08/09/2020 Ms. Reed has been admitted for concern of CSF leak. Her history is well documented. She is a T9 level paraplegic. She is 6 weeks out. Her x-rays are satisfactory. She was transferred here for rehab. Unfortunately, upon discharge, she developed wound dehiscence. I have looked at the wound. It is in the center of the wound. She has aguila dehiscence down to the hardware. There is clear fluid. I suspect her root sleeves where they were avulsed in the prior repair. The repair has likely been dislodged during rehab and she is leaking CSF. She has no symptoms of CSF hypotension. She has been afebrile. Her white blood cell count demonstrates no leukocytosis. Her ESR is at 55 with normal being less than 20, and her CRP is 11.1 with normal being less than 0.5. The plan is to take her to surgery and washout the wound. We have started broad-spectrum antibiotics. I will assess for CSF leak. If there is one, we will repair it and place a lumbar drain. Informed consent was obtained yesterday. We will proceed. Job ID: [id number]
[2020-08-09] MEDS ORDERED: Glycopyrrolate 0.2 MG/ML 5 ML SYRINGE ONE (10:39)
[2020-08-09] MEDS ORDERED: Rocuronium Bromide 10 MG/ML (10ML VIAL) ONE (10:39)
[2020-08-09] MEDS ORDERED: PHENYLEPHRINE-NS 100 MCG/ML 10 ML SYRINGE ONE (10:39)
[2020-08-09] MEDS ORDERED: Dexamethasone 20 MG/5 ML VIAL ONE (10:39)
[2020-08-09] MEDS ORDERED: PROPOFOL 200 MG/20 ML VIAL ONE (10:39)
[2020-08-09] MEDS ORDERED: Ondansetron PF 4 MG/2 ML Vial ONE (10:39)
[2020-08-09] MEDS ORDERED: Lidocaine 1% PF 5 ML VIAL ONE (10:39)
[2020-08-09] MEDS ORDERED: Sodium Chloride 0.9% 10 ML ONE ×2 (12:52→16:18)
[2020-08-09] MEDS ORDERED: Sodium Chloride 0.9% 20 ML ONE (12:56)
[2020-08-09] MEDS ORDERED: Promethazine HCl 25 MG/ML VIAL SLOW IVP PRN (13:24)
[2020-08-09] MEDS ORDERED: Ondansetron HCl/PF 4 MG/2 ML Vial IVP PRN (13:24)
[2020-08-09] MEDS ORDERED: Promethazine HCl 25 MG/ML VIAL IM PRN (13:24)
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
[2020-08-09] MEDS ORDERED: Acetaminophen/Codeine 30-300mg Tablet ONE (17:52)
[2020-08-09] MEDS ORDERED: Bisacodyl 10 MG SUPP PR PRN (20:47)
[2020-08-10] MEDS: HYDROcodone/Acetaminophen 5/325 mg Tablet PO PRN ×4 (00:33→20:41)
[2020-08-10] MEDS: hydrOXYzine 25 MG TAB PO PRN ×3 (00:34→20:43)
[2020-08-10] MEDS: metroNIDAZOLE 500 MG in Premix Bag 1 BAG IVPB SCH ×3 (02:02→17:44)
[2020-08-10] MEDS: Cefepime 1 GM in Sodium Chloride 0.9% 100 ML IVPB SCH ×2 (04:00→16:24)
[2020-08-10 04:46] LABS: Vancomycin, Trough 10.6 ug/mL
[2020-08-10] MEDS: Vancomycin 1 GM in Premix Bag 1 BAG IVPB SCH (05:45)
[2020-08-10] MEDS: Vancomycin HCl 1.25 GM in Sodium Chloride 0.9% 250 ML 250 ML IVPB SCH ×2 (06:06→18:34)
[2020-08-10] MEDS: Diazepam 5 MG TAB PO PRN ×2 (08:47→16:24)
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
[2020-08-10] MEDS: Docusate 100 MG CAP PO SCH (13:30)
[2020-08-10] MEDS: Senokot 8.6 MG TAB PO SCH (13:30)
[2020-08-10] MEDS ORDERED: Bisacodyl 10 MG SUPP PR PRN (20:00)
[2020-08-10] MEDS: Morphine 2 MG/ML VIAL SLOW IVP PRN (21:22)
[2020-08-11] MEDS: Diazepam 5 MG TAB PO PRN ×2 (00:22→22:08)
[2020-08-11] MEDS: metroNIDAZOLE 500 MG in Premix Bag 1 BAG IVPB SCH (01:05)
[2020-08-11] MEDS: Cefepime 1 GM in Sodium Chloride 0.9% 100 ML IVPB SCH ×2 (04:15→16:20)
[2020-08-11] MEDS: Vancomycin HCl 1.25 GM in Sodium Chloride 0.9% 250 ML 250 ML IVPB SCH ×2 (05:49→17:41)
[2020-08-11] MEDS: Morphine 2 MG/ML VIAL SLOW IVP PRN ×3 (05:55→13:33)
[2020-08-11] MEDS: HYDROcodone/Acetaminophen 5/325 mg Tablet PO PRN ×3 (07:24→23:10)
[2020-08-11] MEDS: hydrOXYzine 25 MG TAB PO PRN (07:25)
--- NOTE | 2020-08-11 11:11 | PRG ---
DATE OF SERVICE: 08/11/2020 Ms. Reed is on the 3rd day of her hospital stay, is also postoperative day 3 following thoracic wound revision and spinal fluid leak repair. She is doing mostly well. She has burning, stabbing pain to the right of her thoracic incision. There have also been notable difficulties with draining through her lumbar drain. Upon inspection, she actually has torn the tubing almost entirely at the connection point to the Martel drain tubing. We will make an adjustment and repair that this morning. Asked to continue to drain her wound. Otherwise, her bandages look dry. I am not terribly concerned. Otherwise, she still has full plegia secondary to complete spinal cord injury as noted on previous discussions in her prior hospital stay as well as recounted today. Neurosurgery will continue to follow. No additional changes to be made. Job ID: [id number]
[2020-08-11] MEDS: Senokot 8.6 MG TAB PO SCH (13:33)
[2020-08-11] MEDS: Docusate 100 MG CAP PO SCH (13:34)
[2020-08-11] MEDS ORDERED: Lactated Ringer's 1,000 ML IV SCH (16:30)
[2020-08-11 18:24] LABS: Vancomycin, Trough 11.2 ug/mL
[2020-08-12] MEDS: Cefepime 1 GM in Sodium Chloride 0.9% 100 ML IVPB SCH (03:11)
[2020-08-12] MEDS: Vancomycin HCl 1.25 GM in Sodium Chloride 0.9% 250 ML 250 ML IVPB SCH ×2 (05:26→17:41)
[2020-08-12] MEDS: HYDROcodone/Acetaminophen 5/325 mg Tablet PO PRN (05:46)
--- NOTE | 2020-08-12 08:31 | PRG ---
DATE OF SERVICE: 08/11/2020 I reviewed the assessment and plan as dictated by Mr. Ventura Kulkarni and agree with his overall assessment and plan. Ms. Reed is now status post wound revision with placement of lumbar drain. The drain was intermittently working but had a defect in the tubing, which has since been repaired. We will continue with drainage protocol per Dr. Guevara's instructions. Job ID: [id number]
[2020-08-12] MEDS: Docusate 100 MG CAP PO SCH (09:57)
[2020-08-12] MEDS: Polyethylene Glycol 3350 17 GM Packet PO PRN (09:57)
[2020-08-12] MEDS: Senokot 8.6 MG TAB PO SCH (09:57)
--- NOTE | 2020-08-12 10:45 | PRG ---
DATE OF SERVICE: 08/12/2020 Ms. Reed is on the 4th day of her hospital stay and postop day 4 following wound dehiscence repair and washout with CSF leak repair. We fixed her drain yesterday after finding it was detached, but she has continued to have minimal to really no drainage for the last 24 hours, although admits that her pain has drastically improved and appears to be much more comfortable this morning. She does ask about when she may be going home, but we will leave this to Dr. Guevara and his team tomorrow to make that call. No other complaints at this time. Pressures have been excellent. Job ID: [id number]
[2020-08-12] MEDS: Diazepam 5 MG TAB PO PRN ×2 (11:49→22:22)
[2020-08-12] MEDS: Acetaminophen/Codeine 30-300mg Tablet PO PRN ×2 (14:00→20:04)
[2020-08-12 16:01] VITALS: BP 111/59
[2020-08-13] MEDS: HYDROcodone/Acetaminophen 5/325 mg Tablet PO PRN ×2 (03:29→09:58)
[2020-08-13] MEDS: Vancomycin HCl 1.25 GM in Sodium Chloride 0.9% 250 ML 250 ML IVPB SCH (06:41)
[2020-08-13] MEDS: Polyethylene Glycol 3350 17 GM Packet PO PRN (06:42)
--- NOTE | 2020-08-13 07:43 | PRG ---
DATE OF SERVICE: 08/13/2020 Ms. 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 Her wound has remained dry. The lumbar drain has been now dysfunctional for the last 24 hours essentially and was inconsistent throughout the weekend. As such, we will remove the drain and transition her from vancomycin to oral antibiotic perhaps Bactrim for likely the next 6 to 12 weeks. Currently, she is doing well. We will transfer to the floor. Job ID: [id number]
[2020-08-13 08:15] VITALS: TEMP 98.1
[2020-08-13] MEDS: Docusate 100 MG CAP PO SCH (09:47)
[2020-08-13] MEDS: Senokot 8.6 MG TAB PO SCH (09:47)
== END 2020-08-13 11:54 | disposition home or self-care (01) | DRG 908 ==
LOC: 3SE 13:01 → UNDOADMIN 13:01 → SJJU 13:08 → ONC 13:18 → CCU 08-09 18:30
PROVIDERS: ADMIT Surgery; ATTEND Surgery
PROC: 00UT0KZ Supplement Spinal Meninges with Nonautologous Tissue Substitute, Open Approach (ICD-10-PCS; principal; 2020-08-09)
PROC: 0RP604Z Removal of Internal Fixation Device from Thoracic Vertebral Joint, Open Approach (ICD-10-PCS; 2020-08-09)
PROC: 0S9 Lower Joints, Drainage (ICD-10-PCS; 2020-08-09)
DX: T81.31XA Disruption of external operation (surgical) wound, not elsewhere classified, initial encounter (principal); G82.20 Paraplegia, unspecified; Y83.9 Surgical procedure, unspecified as the cause of abnormal reaction of the patient, or of later complication, without mention of misadventure at the time of the procedure; F90.9 Attention-deficit hyperactivity disorder, unspecified type; Z20.828 Contact with and (suspected) exposure to other viral communicable diseases
CPT/HCPCS: 36415; 80048; 80202; 85025; 85652; 86140; 87635; J0692; J1100; J2270; J2405; J2704; J3010; J3370; J3490; J7050; U0003

== ENCOUNTER 2020-10-12 13:57 | Outpatient (CLI) | payer OTHER ==
--- NOTE | 2020-10-12 15:38 | ULT ---
RENAL ULTRASOUND: 10/12/20 INDICATIONS: Neuromuscular disease. FINDINGS: Both kidneys have a normal sonographic appearance. Cortical thickness and cortical echogenicity appea rs normal. Both kidneys measures approximately 9.5 cm. No hydronephrosis. The urinary bladder is distended and appears unremarkable. Prevoid volume recorded at 169 mL. A postvoid volume was not obtained. Patient does self-catheterization and was unable to perform devika terization at the time of exam. IMPRESSION: Unremarkable renal ultrasound. POS: AGW
== END 2020-10-12 13:58 | disposition home or self-care (01) ==
LOC: ULT 13:57
PROVIDERS: ATTEND Family Medicine
DX: N31.9 Neuromuscular dysfunction of bladder, unspecified (principal)
CPT/HCPCS: 76770

== ENCOUNTER 2020-10-13 19:09 | Emergency (ER) | payer OTHER ==
[~2020-10-13 19:09] MED LIST: Iopamidol-370 76% 500 ML 1 ML ONE
[2020-10-13 19:46] LABS: #Basophils 0.1 thou/uL (0.0-0.2); #Eosinphils 0.2 thou/uL (0.0-0.7); #Lymphocytes 2.3 thou/uL (1.20-3.40); #Monocytes 0.8 thou/uL (0.11-0.59); #Neutrophils 4.5 thou/uL (1.40-6.50); %Basophils 0.9 % (0.0-1.0); %Eosinophils 2.5 % (0.0-10.0); %Lymphocytes 29.6 % (21.0-51.0); %Monocytes 9.6 % (0.0-10.0); %Neutrophils 57.4 % (42.0-75.0); Hemoglobin 12.8 g/dL (12.0-16.0); Mean Corpuscular Hemoglobin 29.9 pg (27.0-31.0); Mean Corpuscular Volume 87.8 fL (78.0-98.0); Mean Platelet Volume 6.1 fL (7.4-10.4); Platelet Count 319 thou/uL (130-400); RBC Distribution Width 12.3 % (11.5-14.5); Red Blood Cell (RBC) Count 4.27 mill/uL (4.20-5.40); White Blood Cell (WBC) Count 7.8 thou/uL (4.8-10.8)
[2020-10-13 20:07] LABS: ALT (SGPT) 14 U/L (8-55); AST (SGOT) 17 U/L (5-34); Alkaline Phosphatase 70 U/L (40-110); Anion Gap 12 mmol/L (10-20); BUN (Urea Nitrogen) 9 mg/dL (7.0-18.7); Bilirubin, Total 0.2 mg/dL (0.2-1.2); Calc. Creatinine Clearance 0 mL/min (70-130); Calcium 9.2 mg/dL (7.8-10.44); Carbon Dioxide 24 mmol/L (22-29); Chloride 108 mmol/L (98-107); Glucose 101 mg/dL (70-105); Potassium 4.3 mmol/L (3.5-5.1); Sodium 140 mmol/L (136-145)
[2020-10-13 21:44] LABS: Bilirubin Negative (Negative); Blood, Urine Negative (Negative); Clarity Extra Turbid (Clear); Glucose, Urine (Dipstick) Normal (Negative); Ketone, Urine Negative (Negative); Leukocyte Negative Leu/uL (Negative); Nitrite Negative (Negative); Protein, Urine (Dipstick) Negative (Neg-Trace); Specific Gravity, Urine 1.018 (1.002-1.036); Urobilinogen Normal mg/dL (Less than 2); pH, Urine 7.5 (5.0-9.0)
--- NOTE | 2020-10-13 22:33 | RAD ---
Frontal and lateral imaging thoracic spine: 10/13/2020 HISTORY: Back pain COMPARISON: 08/08/2020 FINDINGS: Bilateral pedicle screws with vertically oriented interlocking rods are noted at the T6, T7 , T8, T10, and T11 levels. There is a left-sided unilateral pedicle screw at T9. This hardware traverses a comminuted fracture of T9 with anterior loss of vertebral body height. Retropulsion sugge sts that this is a burst fracture. No evidence for hardware failure. No acute fracture is evident. IMPRESSION: Postoperative hardware of the thoracic spine as described above. No significant interval change.
[2020-10-13] MEDS ORDERED: Morphine 4 MG/ML VIAL ONE (23:01)
[2020-10-13] MEDS ORDERED: Ondansetron PF 4 MG/2 ML Vial ONE ×2 (23:01→23:04)
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
[2020-10-14] MEDS ORDERED: Magnesium Citrate 300 ML BOT ONE (00:48)
== END 2020-10-14 01:20 | disposition home or self-care (01) ==
LOC: ERS 19:09
DX: K59.00 Constipation, unspecified (principal)
CPT/HCPCS: 36415; 51701; 72072; 74177; 80053; 81003; 83605; 85025; 87040; 87086; 96374; 96375; J2270; J2405; Q9967

== ENCOUNTER 2020-11-26 19:16 | Emergency (ER) | payer OTHER ==
[2020-11-26] MEDS ORDERED: Morphine 4 MG/ML VIAL ONE (20:18)
[2020-11-26] MEDS ORDERED: Ondansetron PF 4 MG/2 ML Vial ONE (20:18)
[2020-11-26 20:41] LABS: #Lymphocytes 0.8 thou/uL (1.20-3.40); #Monocytes 0.8 thou/uL (0.11-0.59); #Neutrophils 4.4 thou/uL (1.40-6.50); %Basophils 0.4 % (0.0-1.0); %Eosinophils 0.5 % (0.0-10.0); %Lymphocytes 13.7 % (21.0-51.0); %Monocytes 12.6 % (0.0-10.0); %Neutrophils 72.7 % (42.0-75.0); Hemoglobin 12.2 g/dL (12.0-16.0); Mean Corpuscular HGB CONC 34.1 g/dL (32.0-36.0); Mean Corpuscular Hemoglobin 29.9 pg (27.0-31.0); Mean Corpuscular Volume 87.8 fL (78.0-98.0); Mean Platelet Volume 6.2 fL (7.4-10.4); Platelet Count 305 thou/uL (130-400); RBC Distribution Width 12.5 % (11.5-14.5); Red Blood Cell (RBC) Count 4.08 mill/uL (4.20-5.40)
[2020-11-26 21:01] LABS: BHCG - Serum Negative (NEGATIVE); Pregs Control Background? CLEAR/WHITE (CLR/WHITE); Pregs Control Bar Appear? YES (CONTROL BAR)
[2020-11-26 21:02] LABS: ALT (SGPT) 17 U/L (8-55); AST (SGOT) 32 U/L (5-34); Albumin 3.6 g/dL (3.5-5.0); Alkaline Phosphatase 60 U/L (40-110); Anion Gap 13 mmol/L (10-20); BUN (Urea Nitrogen) 6 mg/dL (7.0-18.7); Bilirubin, Total 0.3 mg/dL (0.2-1.2); Calc. Creatinine Clearance 0 mL/min (70-130); Calcium 8.7 mg/dL (7.8-10.44); Carbon Dioxide 23 mmol/L (22-29); Chloride 104 mmol/L (98-107); Globulin 2.7 g/dL (2.4-3.5); Glucose 102 mg/dL (70-105); Lipase 5 U/L (8-78); Potassium 3.5 mmol/L (3.5-5.1); Protein, Total 6.3 g/dL (6.0-8.3); Sodium 136 mmol/L (136-145)
[2020-11-26 21:20] LABS: Bilirubin Negative (Negative); Blood, Urine Negative (Negative); Clarity Turbid (Clear); Glucose, Urine (Dipstick) Normal (Negative); Ketone, Urine 80 mg/dL (Negative); Leukocyte 250 Leu/uL (Negative); Nitrite Negative (Negative); Protein, Urine (Dipstick) 20 mg/dL (Neg-Trace); RBC/HPF 0-3 HPF (0-3); Specific Gravity, Urine 1.021 (1.002-1.036); Squamous Epithelial 0-3 HPF (0-3); Urobilinogen Normal mg/dL (Less than 2); WBC/HPF Greater than 50 HPF (0-3); pH, Urine 8.5 (5.0-9.0)
[2020-11-26 21:29] LABS: Bacteria/HPF 2+ HPF (None Seen)
[2020-11-26] MEDS ORDERED: Promethazine HCl 25 MG/ML VIAL ONE (22:15)
[2020-11-26] MEDS ORDERED: cefTRIAXone\\ROCEPHIN 1 GM VIAL ONE (22:15)
[2020-11-26] MEDS ORDERED: Acetaminophen 500 MG TAB ONE (22:19)
[2020-11-27 00:07] LABS: SARS-CoV-2 NAA Rapid Test Not Detected (NotDetected)
== END 2020-11-26 23:57 | disposition home or self-care (01) ==
LOC: ERS 19:16
DX: N83.201 Unspecified ovarian cyst, right side (principal); N39.0 Urinary tract infection, site not specified; R11.0 Nausea; R00.0 Tachycardia, unspecified; Z79.891 Long term (current) use of opiate analgesic; Z79.899 Other long term (current) drug therapy
CPT/HCPCS: 0240U; 36415; 51701; 74177; 76856; 80053; 81003; 81015; 83605; 83690; 84703; 85025; 87040; 87086; 96365; 96375; J0696; J2270; J2405; J2550; Q9967

== ENCOUNTER 2021-02-16 21:50 | Inpatient (IN) | payer OTHER ==
[2021-02-16 22:33] LABS: #Basophils 0.1 thou/uL (0.0-0.2); #Eosinphils 0.1 thou/uL (0.0-0.7); #Lymphocytes 3.7 thou/uL (1.20-3.40); #Monocytes 0.7 thou/uL (0.11-0.59); %Basophils 0.3 % (0.0-1.0); %Eosinophils 0.5 % (0.0-10.0); %Lymphocytes 25.3 % (21.0-51.0); %Neutrophils 68.8 % (42.0-75.0); Hemoglobin 15.3 g/dL (12.0-16.0); Mean Corpuscular HGB CONC 34.3 g/dL (32.0-36.0); Mean Corpuscular Hemoglobin 30.4 pg (27.0-31.0); Mean Corpuscular Volume 88.6 fL (78.0-98.0); Mean Platelet Volume 6.3 fL (7.4-10.4); Platelet Count 539 thou/uL (130-400); RBC Distribution Width 12.6 % (11.5-14.5); Red Blood Cell (RBC) Count 5.05 mill/uL (4.20-5.40); White Blood Cell (WBC) Count 14.5 thou/uL (4.8-10.8)
[2021-02-16 22:56] LABS: Acetaminophen Less than 6.0 mcg/mL (10.0-30.0); Salicylate Less than 8.0 mg/dL (15.0-30.0)
[2021-02-16 22:57] LABS: ALT (SGPT) 12 U/L (8-55); AST (SGOT) 15 U/L (5-34); Albumin 4.2 g/dL (3.5-5.0); Alkaline Phosphatase 90 U/L (40-110); Anion Gap 24 mmol/L (10-20); BUN (Urea Nitrogen) 17 mg/dL (7.0-18.7); Bilirubin, Total 0.4 mg/dL (0.2-1.2); CK (CPK) 323 U/L (29-168); Calc. Creatinine Clearance 0 mL/min (70-130); Calcium 9.9 mg/dL (7.8-10.44); Carbon Dioxide 13 mmol/L (22-29); Chloride 105 mmol/L (98-107); Globulin 3.5 g/dL (2.4-3.5); Glucose 148 mg/dL (70-105); Potassium 3.2 mmol/L (3.5-5.1); Protein, Total 7.7 g/dL (6.0-8.3); Sodium 139 mmol/L (136-145)
[2021-02-16 23:16] LABS: Alcohol 55 mg/dL (Less than 10)
[2021-02-16] MEDS ORDERED: Ondansetron PF 4 MG/2 ML Vial ONE (23:16)
[2021-02-17] MEDS ORDERED: Succinylcholine 200 MG/10 ml SYRINGE FS ONE (00:15)
[2021-02-17] MEDS ORDERED: Fentanyl 100 MCG/2 ML VIAL ONE (00:27)
[2021-02-17] MEDS ORDERED: Fentanyl CADD 100 ML IV SCH (00:30)
[2021-02-17 00:47] LABS: Actual Bicarbonate (HCO3a) 16.3 mEq/L (22-28); Analyzer IN Cardio ER; Base Excess (BEa) -7.4 mEq/L (-2.0 to +3.0); CO2 Tension 28.3 mmHg (35.0-45.0); Calcium, Ionized (arterial) 1.19 mmol/L (1.12-1.30); Carboxyhemoglobin (COHb) 0.3 gm% (0.0-3.0); O2 Tension (PaO2), arterial 390.7 mmHg (80.0-100.0); Potassium - ABG Lab 3.73 mmol/L (3.70-5.30); pH, Arterial 7.38 (7.35-7.45)
[2021-02-17 00:51] LABS: Puncture Site LRA
[2021-02-17 00:53] LABS: ALV-art Gradient -69.575 mmHg (0-20)
[2021-02-17] MEDS ORDERED: Acetaminophen 325 MG TAB PO PRN (01:06)
[2021-02-17] MEDS ORDERED: Norepinephrine 8 MG/0.9% NS 250 ML IVPB PRN (01:08)
[2021-02-17] MEDS ORDERED: Electrolyte Replacement Protocol 1 EACH IVPB ONE (01:08)
[2021-02-17] MEDS ORDERED: Potassium Chloride 20 MEQ/100 ML PREMIX BAG ONE (01:12)
[2021-02-17] MEDS ORDERED: Fentanyl BOLUS 250 ML IVPB PRN (01:15)
[2021-02-17] MEDS ORDERED: Propofol BOLUS 1,000 MG/100 ML VIAL IV PRN (01:15)
[2021-02-17] MEDS ORDERED: DISCONTINUE PREVIOUS NARCOTIC PAIN MEDICATIONS AND BENZODIAZEPINES FS SCH (01:15)
[2021-02-17] MEDS ORDERED: Morphine 2 MG/ML VIAL SLOW IVP PRN (01:15)
[2021-02-17] MEDS ORDERED: Electrolyte Replacement Protocol FS PRN (01:15)
[2021-02-17] MEDS ORDERED: Lorazepam 2 MG/ML VIAL SLOW IVP PRN (01:15)
[2021-02-17] MEDS ORDERED: Ventilator Sedation Protocol 1 EACH FS SCH (01:15)
[2021-02-17 01:19] LABS: Magnesium 1.9 mg/dL (1.6-2.6)
[2021-02-17 01:26] LABS: Bacteria/HPF 4+ HPF (None Seen); Bilirubin 2+ (Negative); Blood, Urine Negative (Negative); Clarity Clear (Clear); Glucose, Urine (Dipstick) Normal (Negative); Ketone, Urine Trace mg/dL (Negative); Leukocyte 75 Leu/uL (Negative); Nitrite 2+ (Negative); Protein, Urine (Dipstick) 20 mg/dL (Neg-Trace); RBC/HPF 0-3 HPF (0-3); Specific Gravity, Urine 1.035 (1.002-1.036); Squamous Epithelial 0-3 HPF (0-3); Urobilinogen Normal mg/dL (Less than 2); WBC/HPF 21-50 HPF (0-3); pH, Urine 5.5 (5.0-9.0)
[2021-02-17 01:27] LABS: Pregnancy Test - Urine (BHCG) Negative (Negative); Pregu Control Background? CLEAR/WHITE (CLR/WHITE); Pregu Control Bar Appear? YES (CONTROL BAR)
[2021-02-17 01:39] LABS: Cocaine Metabolite Screen Not Detected (NotDetected); Medtox Reader # READER 4; Methamphetamine Not Detected (NotDetected); Opiate Screen Not Detected (NotDetected); Phencyclidine (PCP) Not Detected (NotDetected); THC/Cannabinoid Screen Detected (NotDetected)
[2021-02-17 01:40] LABS: Amphetamine Detected (NotDetected); Barbiturates Screen Not Detected (NotDetected); Benzodiazepine Screen Not Detected (NotDetected); Medtox Control Line Valid? VALID (VALID); Methadone Not Detected (NotDetected); Oxycodone Screen Not Detected (NotDetected); Tricyclic Screen Not Detected (NotDetected)
[2021-02-17] MEDS ORDERED: cefTRIAXone\\ROCEPHIN 2 GM VIAL ONE (01:44)
[2021-02-17] MEDS ORDERED: Potassium Chloride 40 MEQ in Sodium Chloride 0.9% 250 ML 250 ML IVPB SCH (02:00)
[2021-02-17] MEDS ORDERED: Propofol 1,000 MG/100 ML VIAL IV ONE (02:44)
[2021-02-17 02:46] LABS: SARS-CoV-2 NAA Rapid Test Not Detected (NotDetected)
[2021-02-17] MEDS: Sodium Chloride 0.9% 1,000 ML IV SCH ×2 (03:29→16:31)
[2021-02-17] MEDS: Propofol 1,000 MG/100 ML VIAL IV PRN ×2 (03:30→16:30)
[2021-02-17 03:51] LABS: #Lymphocytes 1.3 thou/uL (1.20-3.40); #Monocytes 0.4 thou/uL (0.11-0.59); #Neutrophils 9.7 thou/uL (1.40-6.50); %Basophils 0.4 % (0.0-1.0); %Eosinophils 0.2 % (0.0-10.0); %Lymphocytes 11.2 % (21.0-51.0); %Monocytes 3.3 % (0.0-10.0); %Neutrophils 84.9 % (42.0-75.0); Hemoglobin 14.7 g/dL (12.0-16.0); Mean Corpuscular HGB CONC 33.9 g/dL (32.0-36.0); Mean Corpuscular Hemoglobin 30.4 pg (27.0-31.0); Mean Corpuscular Volume 89.6 fL (78.0-98.0); Mean Platelet Volume 6.5 fL (7.4-10.4); Platelet Count 441 thou/uL (130-400); RBC Distribution Width 12.4 % (11.5-14.5); Red Blood Cell (RBC) Count 4.83 mill/uL (4.20-5.40); White Blood Cell (WBC) Count 11.4 thou/uL (4.8-10.8)
[2021-02-17 04:12] LABS: BUN (Urea Nitrogen) 12 mg/dL (7.0-18.7); Calc. Creatinine Clearance 78 mL/min (70-130); Calcium 9.4 mg/dL (7.8-10.44); Chloride 110 mmol/L (98-107); Glucose 132 mg/dL (70-105); Sodium 137 mmol/L (136-145)
[2021-02-17 04:21] LABS: Carbon Dioxide 13 mmol/L (22-29)
[2021-02-17 04:22] LABS: Anion Gap 18 mmol/L (10-20)
[2021-02-17] MEDS ORDERED: Magnesium 2 GM/50 ML 2 GM in Premix Bag 1 BAG IVPB SCH (06:45)
[2021-02-17] MEDS ORDERED: Potassium Chloride 20 MEQ in Premix Bag 1 BAG IVPB SCH (08:00)
[2021-02-17] MEDS: Enoxaparin Sodium 40 MG/0.4 ML SYRINGE SC SCH (09:34)
[2021-02-17] MEDS: Folic Acid 1 MG TAB PO SCH (09:34)
[2021-02-17] MEDS: Famotidine/PF 20 mg/2ml Vial SLOW IVP SCH ×2 (09:34→20:50)
[2021-02-17] MEDS ORDERED: Fentanyl CADD 100 ML ONE (21:40)
[2021-02-18] MEDS ORDERED: cefTRIAXone\\ROCEPHIN 1 GM in Sodium Chloride 0.9% 100 ML IVPB SCH
[2021-02-18] MEDS: Propofol 1,000 MG/100 ML VIAL IV PRN (00:26)
[2021-02-18 04:49] LABS: Anion Gap 17 mmol/L (10-20); BUN (Urea Nitrogen) 8 mg/dL (7.0-18.7); Calc. Creatinine Clearance 103 mL/min (70-130); Calcium 8.7 mg/dL (7.8-10.44); Carbon Dioxide 13 mmol/L (22-29); Chloride 111 mmol/L (98-107); Glucose 64 mg/dL (70-105); Potassium 3.9 mmol/L (3.5-5.1); Sodium 137 mmol/L (136-145)
[2021-02-18 06:43] LABS: Hemoglobin 12.3 g/dL (12.0-16.0); Mean Corpuscular HGB CONC 32.6 g/dL (32.0-36.0); Mean Corpuscular Hemoglobin 29.6 pg (27.0-31.0); Mean Corpuscular Volume 90.7 fL (78.0-98.0); Mean Platelet Volume 6.4 fL (7.4-10.4); Platelet Count 358 thou/uL (130-400); RBC Distribution Width 12.7 % (11.5-14.5); Red Blood Cell (RBC) Count 4.16 mill/uL (4.20-5.40); White Blood Cell (WBC) Count 15.1 thou/uL (4.8-10.8)
[2021-02-18 06:59] VITALS: TEMP 98.7
[2021-02-18] MEDS: Sodium Chloride 0.9% 1,000 ML IV SCH ×2 (07:34→18:32)
[2021-02-18 07:47] VITALS: BP 133/65
[2021-02-18 09:03] LABS: Band 1 % (5-11); Lymphocytes 39 % (21-51); MDiff Complete? YES; Monocytes 7 % (0-10); Neutrophil 53 % (42-75); Platelet Morphology Comment Appears Adequate; Polychromasia SLIGHT = 2-3 cells (100X) (0-2/hpf)
[2021-02-18] MEDS: Famotidine/PF 20 mg/2ml Vial SLOW IVP SCH (09:52)
[2021-02-18] MEDS: Folic Acid 1 MG TAB PO SCH (09:52)
[2021-02-18] MEDS: Enoxaparin Sodium 40 MG/0.4 ML SYRINGE SC SCH (09:52)
[2021-02-18] MEDS: Ondansetron PF 4 MG/2 ML Vial IVP PRN ×3 (09:52→19:29)
[2021-02-18 15:00] VITALS: BMI 17.7
[2021-02-18] MEDS ORDERED: HYDROcodone/Acetaminophen 5/325 mg Tablet PO SCH (18:00)
== END 2021-02-18 20:10 | disposition short-term general hospital (02) | DRG 917 ==
LOC: ERS 21:50 → CCU 02-17 00:55 → T4-B 02-18 15:48
PROVIDERS: ADMIT Internal Medicine; ATTEND Internal Medicine
PROC: 0BH17EZ Insertion of Endotracheal Airway into Trachea, Via Natural or Artificial Opening (ICD-10-PCS; principal; 2021-02-17)
PROC: 5A1935Z Respiratory Ventilation, Less than 24 Consecutive Hours (ICD-10-PCS; 2021-02-17)
DX: T42.8X2A Poisoning by antiparkinsonism drugs and other central muscle-tone depressants, intentional self-harm, initial encounter (principal); J96.00 Acute respiratory failure, unspecified whether with hypoxia or hypercapnia; N39.0 Urinary tract infection, site not specified; G82.20 Paraplegia, unspecified; R33.9 Retention of urine, unspecified; G89.29 Other chronic pain; F90.9 Attention-deficit hyperactivity disorder, unspecified type; T40.7X2A Poisoning by cannabis (derivatives), intentional self-harm, initial encounter; T40.422A Poisoning by tramadol, intentional self-harm, initial encounter; T42.6X2A Poisoning by other antiepileptic and sedative-hypnotic drugs, intentional self-harm, initial encounter; F32.9 Major depressive disorder, single episode, unspecified; T51.92XA Toxic effect of unspecified alcohol, intentional self-harm, initial encounter; M54.9 Dorsalgia, unspecified; F10.129 Alcohol abuse with intoxication, unspecified; Z20.822 Contact with and (suspected) exposure to COVID-19; Y90.2 Blood alcohol level of 40-59 mg/100 ml; Z79.899 Other long term (current) drug therapy; Z98.890 Other specified postprocedural states
CPT/HCPCS: 0240U; 31500; 36415; 36600; 51702; 71045; 80048; 80053; 80306; 80307; 81003; 81015; 81025; 82550; 82805; 83735; 84443; 85025; 87077; 87086; 87186; 93005; 94002; 94003; 96361; 96365; 96366; 96368; J0696; J1650; J2060; J2405; J2704; J3010; J3411; J3475; J3480; J3490; J7050; S0028

== ENCOUNTER 2021-03-01 13:07 | Outpatient (CLI) | payer OTHER | END 2021-03-01 13:08 | disposition home or self-care (01) | LOC: BICRAD 13:07 | PROVIDERS: ATTEND Surgery | DX: S24.109A Unspecified injury at unspecified level of thoracic spinal cord, initial encounter (principal); M54.9 Dorsalgia, unspecified | CPT/HCPCS: 72072 ==

== ENCOUNTER 2021-04-29 18:06 | Emergency (ER) | payer OTHER, SELFPAY ==
[2021-04-29] MEDS ORDERED: Diazepam 10 MG/2 ML SYRINGE ONE (18:28)
[2021-04-29] MEDS ORDERED: Ketorolac Tromethamine 30 MG/ML VIAL ONE (18:28)
== END 2021-04-29 20:55 | disposition home or self-care (01) ==
LOC: ERS 18:06
DX: M62.830 Muscle spasm of back (principal)
CPT/HCPCS: 96372; 99283; J1885; J3360

== ENCOUNTER 2021-07-08 09:07 | Outpatient (CLI) | payer OTHER ==
[2021-07-08] MEDS ORDERED: Magnevist 469MG/ML 20 ML VIAL ONE (11:21)
== END 2021-07-08 09:08 | disposition home or self-care (01) ==
LOC: MRI 09:07
PROVIDERS: ATTEND Family Medicine
DX: S24.103A Unspecified injury at T7-T10 level of thoracic spinal cord, initial encounter (principal); M48.04 Spinal stenosis, thoracic region; G95.89 Other specified diseases of spinal cord
CPT/HCPCS: 72157

== ENCOUNTER 2022-03-26 21:41 | Emergency (ER) | payer OTHER ==
[2022-03-26 22:12] LABS: #Basophils 0.1 thou/uL (0.0-0.2); #Eosinphils 0.1 thou/uL (0.0-0.7); #Monocytes 0.8 thou/uL (0.11-0.59); #Neutrophils 3.3 thou/uL (1.40-6.50); %Basophils 0.9 % (0.0-1.0); %Eosinophils 1.6 % (0.0-10.0); %Lymphocytes 41.4 % (21.0-51.0); %Monocytes 10.7 % (0.0-10.0); %Neutrophils 45.4 % (42.0-75.0); Hemoglobin 13.7 g/dL (12.0-16.0); Mean Corpuscular HGB CONC 32.9 g/dL (32.0-36.0); Mean Corpuscular Hemoglobin 30.8 pg (27.0-31.0); Mean Corpuscular Volume 93.5 fL (78.0-98.0); Mean Platelet Volume 6.4 fL (7.4-10.4); Platelet Count 339 thou/uL (130-400); RBC Distribution Width 11.6 % (11.5-14.5); Red Blood Cell (RBC) Count 4.44 mill/uL (4.20-5.40); White Blood Cell (WBC) Count 7.2 thou/uL (4.8-10.8)
[2022-03-26 22:24] LABS: INR-International Normal Ratio 0.9; PTT 31.9 sec (22.9-36.1); Prothrombin Time 12.7 sec (12.0-14.7)
[2022-03-26 22:25] LABS: D-Dimer Test 1.12 *mcg/mL (0.27-0.43)
[2022-03-26 22:30] LABS: ALT (SGPT) 14 U/L (8-55); AST (SGOT) 18 U/L (5-34); Albumin 4.2 g/dL (3.5-5.0); Alkaline Phosphatase 71 U/L (40-110); Anion Gap 11 mmol/L (10-20); BUN (Urea Nitrogen) 11 mg/dL (7.0-18.7); Bilirubin, Total 0.3 mg/dL (0.2-1.2); Calc. Creatinine Clearance 0 mL/min (70-130); Calcium 9.7 mg/dL (7.8-10.44); Carbon Dioxide 30 mmol/L (22-29); Chloride 102 mmol/L (98-107); Estimated GFR 125; Globulin 2.8 g/dL (2.4-3.5); Glucose 104 mg/dL (70-105); Potassium 4.3 mmol/L (3.5-5.1); Sodium 139 mmol/L (136-145)
== END 2022-03-27 03:58 | disposition home or self-care (01) ==
LOC: ERS 21:41
DX: M79.89 Other specified soft tissue disorders (principal); R59.0 Localized enlarged lymph nodes
CPT/HCPCS: 36415; 80053; 85025; 85379; 85610; 85730

== ENCOUNTER 2022-04-02 11:40 | Outpatient (CLI) | payer OTHER | END 2022-04-02 11:41 | disposition home or self-care (01) | LOC: ULT 11:40 | PROVIDERS: ATTEND Family Medicine | DX: R60.0 Localized edema (principal) ==